=== PATIENT | male | born 1930 | race Caucasian/White ===

== ENCOUNTER 2018-11-18 07:15 | Day surgery (SDC) | payer OTHER ==
[2018-11-18] MEDS ORDERED: levOFLOXACIN 500 MG/DEXTROSE 100 ML IV ONE (07:32)
[2018-11-18] MEDS ORDERED: LIDOCAINE 1% 2 ML INJ ID PRN (07:34)
[2018-11-18] MEDS ORDERED: LR 1,000 ML IV ONE (07:34)
[2018-11-18] MEDS ORDERED: DEXAMETHASONE 4 MG/ML VIAL ONE (08:01)
[2018-11-18] MEDS ORDERED: LIDOCAINE 2% 2 ML INJ ONE (08:01)
[2018-11-18] MEDS ORDERED: ONDANSETRON 4 MG/2 ML VIAL ONE (08:01)
[2018-11-18] MEDS ORDERED: PROPOFOL 200 MG/20 ML VIAL ONE ×2 (08:02→10:00)
[2018-11-18] MEDS ORDERED: fentaNYL 100 MCG/2 ML INJ ONE (08:02)
[2018-11-18] MEDS ORDERED: MIDAZOLAM 2 MG/2 ML VIAL IVP ONE (08:38)
[2018-11-18] MEDS ORDERED: MEPERIDINE 25 MG/0.5 ML AMP IVP PRN (08:39)
[2018-11-18] MEDS ORDERED: PROMETHAZINE HCL 25 MG/ML INJ IVP PRN (08:39)
[2018-11-18] MEDS ORDERED: PHENYLEPHRINE HCL 100 MCG/ML SYR IVP PRN (08:39)
[2018-11-18] MEDS ORDERED: oxyCODONE IR 5 MG TAB PO PRN (08:39)
[2018-11-18] MEDS ORDERED: NALOXONE HCL 0.4 MG/ML INJ IVP PRN (08:39)
[2018-11-18] MEDS ORDERED: LR 500 ML IV PRN (08:39)
[2018-11-18] MEDS ORDERED: ONDANSETRON 4 MG/2 ML VIAL IVP PRN (08:39)
[2018-11-18] MEDS ORDERED: fentaNYL 100 MCG/2 ML INJ IVP PRN (08:39)
[2018-11-18] MEDS ORDERED: HYDROmorphONE/DILAUDID 2 MG/ML INJ IVP PRN (08:39)
[2018-11-18] MEDS ORDERED: METOCLOPRAMIDE 10 MG/2 ML VIAL IVP PRN (08:39)
--- NOTE | 2018-11-18 08:56 | PDHPUP ---
History & Physical Update H&P update statement: This history and physical update is based on an assessment of the patient which was completed after admission or registration (within 24 hours), but prior to the surgery/procedure. H&P update: H&P reviewed & patient examined, no change in patient's condition since H&P completed
--- NOTE | 2018-11-18 09:07 | PDANEPAE ---
ANE Past Medical History - Cardiovascular History Hx Hypertension: No Hx Arrhythmias: No Hx Chest Pain: No Hx Coronary Artery / Peripheral Vascular Disease: No Hx CHF / Valvular Disease: No Hx Palpitations: No - Pulmonary History Hx COPD: No Hx Asthma/Reactive Airway Disease: No Hx Recent Upper Respiratory Infection: No Hx Oxygen in Use at Home: No Hx Sleep Apnea: No Sleep Apnea Screening Result - Last Documented: Negative - Neurologic History Hx Cerebrovascular Accident: No Hx Seizures: No Hx Dementia: No - Endocrine History Hx Diabetes: No - Renal History Hx Renal Disorders: No - Liver History Hx Hepatic Disorders: No - Neurological & Psychiatric Hx Hx Neurological and Psychiatric Disorders: No - Cancer History Hx Cancer: Yes Cancer History Comment: bladder - Congenital Disorder History Hx Congenital Disorders: No - GI History Hx Gastrointestinal Disorders: No - Other Health History Other Health History: cateracts - Chronic Pain History Chronic Pain: No - Surgical History Prior Surgeries: 2017 bladder ca removed ANE Review of Systems Review of Systems: - Exercise capacity METS (RN): 4 METS ANE Patient History - Allergies Allergies/Adverse Reactions: No Known Allergies Allergy (Verified 11/04/18 15:30) - Home Medications Home Medications: Aspirin 11/04/18 [Last Taken 1 Week Ago ~11/11/18] Atorvastatin Calcium 11/04/18 [Last Taken 11/17/18] - NPO status NPO Since - Liquids (Date): 11/17/18 NPO Since - Liquids (Time): 21:00 NPO Since - Solids (Date): 11/17/18 NPO Since - Solids (Time): 18:00 - Anes Hx Anes Hx: no prior problems - Smoking Hx Smoking Status: Former smoker - Family Anes Hx Family Anes Hx: none Family Hx Anesthesia Complications: none ANE Labs/Vital Signs - Vital Signs Blood Pressure: 142/86 Heart Rate: 53 Respiratory Rate: 14 O2 Sat (%): 95 Height: 175.26 cm Weight: 79.379 kg ANE Physical Exam - Airway Neck exam: FROM Mallampati Score: Class 2 Mouth exam: normal dental/mouth exam - Pulmonary Pulmonary: no respiratory distress, no rales or rhonchi, clear to auscultation - Cardiovascular Cardiovascular: regular rate and rhythym, no murmur, rub, or gallop - ASA Status ASA Status: II
--- NOTE | 2018-11-18 09:08 | POSTANESTH ---
Post Anesthetic Evaluation Cardiovascular Status: Normal, Stable Respiratory Status: Normal, Stable Level of Consciousness/Mental Status: Can Participate in Eval Pain Control: Adequate, Prn Tx Ordered Nausea/Vomiting Control: Adequate, Prn Tx Ordered Complications Possibly Related to Anesthesia: None Noted
[2018-11-18] MEDS ORDERED: LIDOCAINE 2% JELLY 20 ML (UROJECT) ONE (09:36)
[2018-11-18] MEDS ORDERED: OPIUM/BELLADONNA ALKALO SUPP PR ONE ×2 (09:37→10:30)
--- NOTE | 2018-11-18 10:29 | POSTOPPROG ---
Post Op Note Date of Operation: 11/18/18 Surgeon: Laura Deleon Anesthesiologist: Pacheco Anesthesia: GET(General Endotracheal) Pre-op Diagnosis: recurrent tumor, hx HGUCC Post-op Diagnosis: same Indication: recurrent tumor and positive cytology Procedure: cysto, TURBT medium tumor Findings: 4cm area of erythematous bladder mucosa resected, suspect CIS Inf/Abcess present in the surg proc area at time of surgery?: No EBL: Minimal Complications: none, pt tolerated procedure well Drains: Other (quinones)
[2018-11-18 14:12] VITALS: BP 135/84
--- NOTE | 2018-11-19 15:24 | GOP ---
DATE OF OPERATION: 11/18/2018 SURGEON: Laura Deleon MD ANESTHESIA: General endotracheal. ANESTHESIOLOGIST: Damion Bergman MD. 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 PROCEDURE PERFORMED: Cystoscopy and transurethral resection of bladder tumor, medium, approximately 4 cm. FINDINGS: A 4 cm area of erythematous bladder mucosa on the posterior bladder that was resected in its entirety. This tumor was not sick, but it appeared to be very suspicious for carcinoma in situ. ESTIMATED BLOOD LOSS: Minimal. INDICATIONS: Recurrent tumor and positive cytology in a patient with high- grade urothelial cell carcinoma in the past. DESCRIPTION OF PROCEDURE: He was taken back to the cystoscopy suite, placed on the cystoscopy table in a supine position. General anesthesia induced without complication. Time-out performed and core measures satisfied, including placement of a Soni Hugger, SCDs, and administration of Levaquin antibiotics. He was brought to the end of the table, placed in a dorsal lithotomy position. All pressure points padded. Genitalia draped and prepped in a standard surgical fashion with Betadine. A rigid cystoscope easily cannulated the urethral meatus and was advanced atraumatically into the bladder. Pancystoscopy was performed with a 30 and 70 degree lens. The erythematous posterior area in the bladder was very noticeable and this was the area that I suspect is where there is recurrence. In my clinic, I had noted some spots on the anterior bladder and today, cystoscopy did not show these same lesions and I did not see any of the spots; thus, the only area of concern was the posterior bladder. There were well-healed also, prior resection sites, and the erythema did incorporate these areas as well. The erythema did not include the ureteral orifice, but on the right, ureteral orifice came very close. With this , I removed the cystoscope and then assembled the resectoscope and used a loop for the resectoscope to remove this erythematous area. I was very cognizant on where the ureteral orifices were. I did not violate those ureteral orifices, but again the redness came very close to the right ureteral orifice. The posterior area of redness was resected in a systematic way, from the most posterior aspect to the trigone, and the redness did include into the trigone. I did get muscle in my specimen and hemostasis was maintained and excellent throughout the procedure. I used an [employer] evacuator to remove some of the bladder tumor fragments and sent those to Pathology for permanent. At the end of the procedure, I saw efflux of urine from both the right and left ureteral orifices. I also made sure I gathered all of the specimens and made sure hemostasis was excellent. I used cautery liberally around the edge of the tumor resection, as well as in the bed of the tumor resection. At the end, urine was very clear; however, he has a history of urinary retention after surgery, so I elected to place a Barrios catheter. 18-[place] Barrios catheter was placed without difficulty. His bladder drained. He was awoken from anesthesia and transferred to the PACU in good condition. COMPLICATIONS: None. The patient tolerated the procedure well. DRAINS: A Barrios catheter. INDICATIONS: The patient is a very pleasant 88-year-old gentleman with a history of high-grade noninvasive urothelial cell carcinoma. He had undergone BCG treatments and came to my office for surveillance cystoscopy, at the time of which I saw a very suspicious area in his bladder that was consistent with possible high-grade urothelial cell recurrence. I got a urine cytology and it was positive for high-grade urothelial cell carcinoma. Thus, I elected to take him back to the operating room and do a maximal TURBT on him so we could reinitiate BCG treatments. The rest of the risks and benefits were discussed in detail and he agreed to proceed. /[id number]/MODL MTDD
== END 2018-11-18 12:54 | disposition home or self-care (01) ==
LOC: FSGY 07:15
PROVIDERS: ATTEND Urology
PROC: 0TBB8ZX Excision of Bladder, Via Natural or Artificial Opening Endoscopic, Diagnostic (ICD-10-PCS; principal; 2018-11-18 09:15)
DX: D09.0 Carcinoma in situ of bladder (principal); E78.5 Hyperlipidemia, unspecified
CPT/HCPCS: J1100; J1956; J2250; J2405; J2704; J3010

== ENCOUNTER 2019-03-09 19:26 | Emergency (ER) | payer OTHER ==
--- NOTE | 2019-03-09 19:47 | EDPHY ---
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 Today tried to change the bandages and it began bleeding. It is been oozing for the last hour and his shirt is now covered in blood. He does not feel lightheaded. He is not on blood thinners. He has never had clotting problems before. No trauma. Severity: Severe Modifying factors: Improves with pressure REVIEW OF SYSTEMS: Constitutional: denies: chills, fever, recent illness, recent injury EENTM: denies: blurred vision, double vision, nose congestion Respiratory: denies: cough, shortness of breath Cardiac: denies: chest pain, irregular heart rate, lightheadedness, palpitations Gastrointestinal/Abdominal: denies: abdominal pain, diarrhea, nausea, vomiting, blood streaked stools Genitourinary: denies: dysuria, frequency, hematuria, pain Musculoskeletal: denies: joint pain, muscle pain Skin: See HPI Neurological: denies: headache, numbness, paresthesia, tingling, dizziness, weakness Hematologic/Lymphatic: denies: blood clots, easy bleeding, easy bruising Immunologic/allergic: denies: HIV/AIDS, transplant 10 systems reviewed and negative except as noted EXAM: GENERAL: Well-appearing, well-nourished and in no acute distress. HEAD: Atraumatic, normocephalic. EYES: Pupils equal round and reactive to light, extraocular movements intact, sclera anicteric, conjunctiva are normal. ENT: TMs normal, nares patent, oropharynx clear without exudates. Moist mucous membranes. NECK: Normal range of motion, supple without lymphadenopathy or JVD. LUNGS: Breath sounds clear to auscultation bilaterally and equal. No wheezes rales or rhonchi. HEART: Regular rate and rhythm without murmurs, rubs or gallops. ABDOMEN: Soft, nontender, normoactive bowel sounds. No guarding, no rebound. No masses appreciated. BACK: No CVA tenderness, no spinal tenderness, step-offs or deformities EXTREMITIES: Normal range of motion, no pitting or edema. No clubbing or cyanosis. NEUROLOGICAL: Cranial nerves II through XII grossly intact. Normal speech, normal gait. 5/5 strength, normal movement in all extremities, normal sensation , normal reflexes PSYCH: Normal mood, normal affect. SKIN: Patient has a 1 x 1 cm area of skin that is been removed to his right anterior lateral neck. There is brisk oozing of the blood. No spurting or arterial bleeding. Source: Patient - Personal History Current Tetanus Diphtheria and Acellular Pertussis (TDAP): Yes - Medical/Surgical History Hx Asthma: No Hx Chronic Respiratory Disease: No Hx Diabetes: No Hx Cardiac Disease: No Hx Renal Disease: No Hx Cirrhosis: No Hx Alcoholism: No Hx HIV/AIDS: No Hx Splenectomy or Spleen Trauma: No Other PMH: high cholesterol - Family History Significant Family History: No pertinent family hx - Social History Smoking Status: Former smoker Alcohol Use: Sober Drug Use: None Constitutional: Initial Vital Signs Temperature (C) 36.4 C 03/09/19 19:29 Heart Rate 61 03/09/19 19:29 Respiratory Rate 16 03/09/19 19:29 Blood Pressure 169/89 H 03/09/19 19:29 O2 Sat (%) 95 03/09/19 19:29 O2 Delivery Mode Room Air Allergies/Adverse Reactions: No Known Allergies Allergy (Verified 11/04/18 15:30) Home Medications: Medication Instructions Recorded Atorvastatin Calcium 11/04/18 Aspirin 81 mg PO DAILY #1 11/18/18 Medical Decision Making Procedures: Procedure: Laceration repair. Verbal consent was obtained from the patient. The right neck laceration was anesthetized with 1% lidocaine with epi and bicarbonate locally infiltrated. The wound was irrigated copiously according to protocol, draped and explored to its base. It was approximately 1/2 cm deep. There were no deep structures involved. No tendon, nerve, or vascular injury was identified. No foreign body was identified. The wound was repaired with 4.0 Prolene, a single figure- of-eight suture. The wound repair was simple , the skin was not closed but rather the bleeding controlled through the fascia and muscle. The procedure was performed by myself. A dressing was then placed with sterile gauze and surgefoam. ED Course/Re-evaluation: Patient's wound was compressed with direct pressure then instilled with lidocaine and epinephrine. Bleeding slowed significantly. I then placed a [id number] suture in the bleeding was controlled. It was then dressed with Surgifoam and sterile bandages. 8:30 p.m. patient's bleeding is controlled. He has follow-up appointment with his charger tester in 5 days and will have the suture removed then. Discussed wound care. Patient is happy with this and declines further workup or testing at this time. Departure - Departure Disposition: Home, Routine, Self-Care Clinical Impression: Postoperative bleeding Condition: Fair Instructions: Postoperative Bleeding (ED) Referrals: Mateo Winter MD [Primary Care Provider] - As per Instructions
[2019-03-09 20:44] VITALS: BP 147/91
== END 2019-03-09 20:43 | disposition home or self-care (01) ==
PROC: 0HQ4XZZ Repair Neck Skin, External Approach (ICD-10-PCS; principal; 2019-03-09)
DX: L76.22 Postprocedural hemorrhage of skin and subcutaneous tissue following other procedure (principal); Z87.891 Personal history of nicotine dependence

== ENCOUNTER → 2019-03-17 | Outpatient (CLI) | payer OTHER ==
[~2019-03-17] MED LIST: IOPAMIDOL (ISOVUE-300) 100 ML BTL ONE
== END ==
LOC: FIMAGING 15:10
PROVIDERS: ATTEND Urology
DX: C67.8 Malignant neoplasm of overlapping sites of bladder (principal); N20.0 Calculus of kidney
CPT/HCPCS: 74178; Q9967; 82565-PO

== ENCOUNTER 2019-03-24 11:01 | Day surgery (SDC) | payer OTHER ==
[2019-03-24] MEDS ORDERED: OPIUM/BELLADONNA ALKALO SUPP PR PRN (11:09)
[2019-03-24] MEDS ORDERED: levOFLOXACIN 500 MG/DEXTROSE 100 ML IV ONE (11:09)
[2019-03-24] MEDS ORDERED: LR 1,000 ML IV ONE (11:10)
[2019-03-24] MEDS ORDERED: LIDOCAINE 1% 2 ML INJ ID PRN (11:10)
--- NOTE | 2019-03-24 12:18 | PDANEPAE ---
ANE Past Medical History - Cardiovascular History Hx Hypertension: No Hx Arrhythmias: No Hx Chest Pain: No Hx Coronary Artery / Peripheral Vascular Disease: No Hx CHF / Valvular Disease: No Hx Palpitations: No - Pulmonary History Hx COPD: No Hx Asthma/Reactive Airway Disease: No Hx Recent Upper Respiratory Infection: No Hx Oxygen in Use at Home: No Hx Sleep Apnea: No Sleep Apnea Screening Result - Last Documented: Negative - Neurologic History Hx Cerebrovascular Accident: No Hx Seizures: No Hx Dementia: No - Endocrine History Hx Diabetes: No - Renal History Hx Renal Disorders: No - Liver History Hx Hepatic Disorders: No - Neurological & Psychiatric Hx Hx Neurological and Psychiatric Disorders: No - Cancer History Hx Cancer: Yes Cancer History Comment: bladder - Congenital Disorder History Hx Congenital Disorders: No - GI History Hx Gastrointestinal Disorders: No - Other Health History Other Health History: cateracts - Chronic Pain History Chronic Pain: No - Surgical History Prior Surgeries: 2017 bladder ca removed ANE Review of Systems Review of Systems: - Exercise capacity METS (RN): 4 METS ANE Patient History - Allergies Allergies/Adverse Reactions: No Known Allergies Allergy (Verified 03/24/19 11:36) - Home Medications Home Medications: Atorvastatin Calcium 11/04/18 [Last Taken 03/23/19 21:00] Aspirin 03/15/19 [Last Taken 1 Week Ago ~03/17/19] - NPO status NPO Since - Liquids (Date): 03/24/19 NPO Since - Liquids (Time): 10:15 NPO Since - Solids (Date): 03/23/19 NPO Since - Solids (Time): 23:00 - Smoking Hx Smoking Status: Former smoker - Family Anes Hx Family Hx Anesthesia Complications: none ANE Labs/Vital Signs - Vital Signs Vital Signs: reviewed preoperatively; see RN documention for details Blood Pressure: 146/84 Heart Rate: 55 Respiratory Rate: 11 O2 Sat (%): 96 Height: 175.26 cm Weight: 74.843 kg ANE Physical Exam - Airway Neck exam: FROM Mallampati Score: Class 2 Mouth exam: normal dental/mouth exam - Pulmonary Pulmonary: clear to auscultation - Cardiovascular Cardiovascular: regular rate and rhythym - ASA Status ASA Status: II ANE Anesthesia Plan Anesthesia Plan: GA w LMA
[2019-03-24] MEDS ORDERED: OPIUM/BELLADONNA ALKALO SUPP PR ONE (12:20)
[2019-03-24] MEDS ORDERED: LIDOCAINE 2% JELLY 20 ML (UROJECT) ONE (12:21)
[2019-03-24] MEDS ORDERED: PROPOFOL 200 MG/20 ML VIAL ONE (12:27)
[2019-03-24] MEDS ORDERED: fentaNYL 100 MCG/2 ML INJ ONE ×2 (12:27→14:08)
[2019-03-24] MEDS ORDERED: PROPOFOL/EMULSION 500 MG/50 ML BOTTLE IV ONE (13:02)
[2019-03-24] MEDS ORDERED: ROCURONIUM 50 MG/5 ML VIAL ONE (13:38)
[2019-03-24] MEDS ORDERED: DEXAMETHASONE 4 MG/ML VIAL ONE (13:49)
[2019-03-24] MEDS ORDERED: ONDANSETRON 4 MG/2 ML VIAL ONE (13:49)
[2019-03-24] MEDS ORDERED: SUCCINYLCHOLINE CHLORIDE 200 MG/10 ML SYR IVP ONE (13:58)
[2019-03-24] MEDS ORDERED: SUGAMMADEX SODIUM 200 MG/2 ML VIAL IVP ONE (13:58)
[2019-03-24] MEDS ORDERED: HYDROmorphONE/DILAUDID 1 MG/ML INJ IVP PRN (13:59)
[2019-03-24] MEDS ORDERED: fentaNYL 100 MCG/2 ML INJ IVP PRN (13:59)
[2019-03-24] MEDS ORDERED: ONDANSETRON 4 MG/2 ML VIAL IVP PRN (13:59)
[2019-03-24] MEDS ORDERED: ALBUTEROL 3 ML DEYVIAL IH PRN (13:59)
[2019-03-24] MEDS ORDERED: LABETALOL HCL 5 MG/ML 20 ML MDV IVP PRN (13:59)
[2019-03-24] MEDS ORDERED: ACETAMINOPHEN 500 MG TAB PO PRN (13:59)
[2019-03-24] MEDS ORDERED: METOCLOPRAMIDE 10 MG/2 ML VIAL IVP PRN (13:59)
[2019-03-24] MEDS ORDERED: NALOXONE HCL 0.4 MG/ML INJ IVP PRN (13:59)
[2019-03-24] MEDS ORDERED: BACITRACIN ZINC 0.5 OZ OINTTUBE TP ONE (14:10)
--- NOTE | 2019-03-24 15:06 | POSTOPPROG ---
Post Op Note Date of Operation: 03/24/19 Surgeon: Laura Deleon Anesthesiologist: Otilio Anesthesia: GET(General Endotracheal) Pre-op Diagnosis: hx CIS w recurrence of bladder tumor Post-op Diagnosis: same Indication: hx CIS w recurrence of bladder tumor Procedure: cysto, TURBT small, prostatic urethral biopsies Findings: recurrent tumor Inf/Abcess present in the surg proc area at time of surgery?: No EBL: Minimal Complications: None, patient tolerated procedure well Drains: Other (quinones) Specimen(s): bladder tumor and prostatic urethral bx
[2019-03-24 16:15] VITALS: BP 129/78
--- NOTE | 2019-03-24 22:50 | GOP ---
[f rep st] OPERATIVE REPORT DATE OF OPERATION: 03/24/2019 SURGEON: Laura Deleon MD ANESTHESIA: General. ANESTHESIOLOGIST: Julieta Escobar MD. PREOPERATIVE DIAGNOSIS: Recurrent bladder tumor and urine cytology suspicious for malignancy and history of carcinoma in situ of the bladder. POSTOPERATIVE DIAGNOSIS: Recurrent bladder tumor and urine cytology suspicious for malignancy and history of carcinoma in situ of the bladder. PROCEDURE PERFORMED: Cystoscopy using both white light and narrow band imaging , transurethral resection of bladder tumor and prostatic urethral biopsies. FINDINGS: suspicious area trigone and to the right of the trigone approaching the right ureteral orifice - area highighed w NBI and also was suspicious w white light. SPECIMENS: Bladder tumor and then prostatic urethral biopsy sent separately. ESTIMATED BLOOD LOSS: Minimal. INDICATIONS: The patient is here for removal of recurrent tumor. He underwent a surveillance cystoscopy after a round of BCG for treatment of his CIS and was found to have recurrence. He had recurrence noted back in October of 2018 and again recurrence at the last cystoscopy. I did send cytology, and that was suspicious for malignancy. I discussed resection of abnormal tissue and also prostatic urethral biopsies, and he understood this and agreed to proceed. I discussed the risks which include bleeding, infection, pain, injury to the urethra, the bladder, the ureteral orifices, perforation of the bladder requiring subsequent procedures, need for Barrios catheter short-term, and possible need for a right ureteral stent depending upon how far the tumor comes to the right ureteral orifice. He understood all this and agreed to proceed. DESCRIPTION OF PROCEDURE: The patient was taken back to the cystoscopy suite, placed on the cystoscopy table in supine position. General anesthesia induced without complication. Time-out performed. Core measures satisfied, including placement of a Soni Hugger, SCDs, and administration of Levaquin antibiotics. He was brought to the end of the table, placed in a dorsal lithotomy position. All pressure points padded. Genitalia prepped and draped in a standard surgical fashion with Betadine. Rigid cystoscope easily cannulated. The urethral meatus was advanced atraumatically into the bladder. I did a thorough reeder-cystoscopy with both 30 and 70 degree lens, also using white light and narrow band imaging. Both the white light and narrow band imaging displayed the area of concern, which was along the right trigone area. Specifically, there was a track of abnormal tissue, and this highlighted with the narrow band imaging. It did go close to the right ureteral orifice from the mid trigone and then laterally. There was a well-healed scar. He had a large amount of tumor in October that I resected that was posterior and to the left. This was no evidence of recurrence, but the area toward the right mid trigone was suspicious. Then I removed the scopes and advanced a visual obturator without difficulty into the bladder. I assembled my loop and then carefully resected the abnormal tissue, resected wide margin. I resected close to the right ureteral orifice but did not involve it. There was no need for a stent, and the orifice was not compromised in any way. I was able to see the left ureteral orifice, and that was also not compromised. I feel I got an excellent resection at the end. Hemostasis was maintained throughout with electrocautery , and I did resect all the abnormal tissue and then used electrocautery liberally around the edge of the resected base and also inside the base. There was no bladder perforation, but the resection was thin in several areas. His bladder overall is very thin. I gathered all these tumor pieces and sent them to Pathology for permanent. Then I did prostatic urethral biopsies on the right and the left prostatic urethra near the veru. The veru was hard to see. He has a history of a TURP in the past, and it was not as prominent as probably it was at one time due to the TURP. I was able to identify where the area was to biopsy near the veru, and I did send these biopsies separately from the bladder tumor. I used electrocautery to maintain hemostasis. I re-looked back into the bladder. Hemostasis was excellent, and it was excellent also at the prostatic urethral biopsies. At this point, I removed the resectoscope, placed a Barrios catheter, and there was return of clear urine. I inflated the Barrios catheter with sterile water, 10 mL, and connected Barrios bag. I did put lidocaine jelly into the bladder prior to placing the Barrios and then placed a belladonna and opium suppository. He did well during the entire case. COMPLICATIONS: None. The patient tolerated the procedure well. /[id number]/MODL MTDD
--- NOTE | 2019-03-28 09:41 | POSTANESTH ---
Post Anesthetic Evaluation Notes: 03/28/2019: Received a note that the patient had called regarding muscle weakness. I returned his phonecall. Surgery was 03/24. On 03/26 POD2, pt developed muscle aches and weakness in his large muscle groups. He needed assistance and a walker to ambulate safely. His symptoms improved throughout the day and the following day. He was wondering if anesthesia may have caused this. I said that succinylcholine does cause myalgias, but not typically weakness 2 days later. He felt that the muscle aches may have made him feel subjectively weak. His symptoms are much better today, and he is reassured that he will continue to improve. I asked that he call back if his symptoms return, as the differential diagnoses for weakness could be extensive, and may not be related to medications, but could be a sequelae of positioning. I remember being very careful with positioning him due to his kyphosis and limited neck ROM.
== END 2019-03-24 16:20 | disposition home or self-care (01) ==
LOC: FSGY 11:01
PROVIDERS: ATTEND Urology
PROC: 0VB08ZX Excision of Prostate, Via Natural or Artificial Opening Endoscopic, Diagnostic (ICD-10-PCS; principal; 2019-03-24 13:00)
PROC: 0TBB8ZX Excision of Bladder, Via Natural or Artificial Opening Endoscopic, Diagnostic (ICD-10-PCS; principal; 2019-03-24 13:00)
DX: N30.30 Trigonitis without hematuria (principal); Z85.51 Personal history of malignant neoplasm of bladder; N40.1 Benign prostatic hyperplasia with lower urinary tract symptoms
CPT/HCPCS: J0330; J1100; J1956; J2405; J2704; J3010